=== PATIENT | female | born 1975 | race Caucasian/White ===

== ENCOUNTER 2018-05-31 05:40 | Day surgery (SDC) | payer BC ==
[~2018-05-31] VITALS: Ht 177.8 cm; Wt 64.5 kg
[~2018-05-31 05:40] MED LIST: SERT50TA PO
[2018-05-31] MEDS ORDERED: LACTATED RINGER'S 1000ML 1,000 ML IV SCH ×2 (06:00)
[2018-05-31 06:14] VITALS: BP 107/75; PULSE 9; TEMP 36; O2SAT 98; Ht 177.8 cm; Wt 64.5 kg
[2018-05-31] MEDS ORDERED: FENTANYL CITRATE INJ 50 MCG/1 ML 2 ML VIAL ONE (06:34)
[2018-05-31] MEDS ORDERED: MIDAZOLAM HCL 1 MG/ML 2ML VIAL ONE (06:34)
[2018-05-31] MEDS ORDERED: SILVER NITR/POTASSIUM NITRATE APPLICATOR ONE (06:57)
--- NOTE | 2018-05-31 07:03 | History & Physical Bridge Note ---
H&P Re-Evaluation Bridge Note: I have examined the patient, reviewed the History & Physical and in the interval since the performance of the History & Physical I have noted the following changes of clinical significance: No changes noted
[2018-05-31] MEDS ORDERED: SODIUM CHLORIDE 0.9% 1000ML 1,000 ML IV SCH (07:17)
--- NOTE | 2018-05-31 07:20 | Discharge Instructions ---
Discharge Instructions Date of Service May 31, 2018. Admission Reason for Admission: Missed Discharge Discharge Diagnosis / Problem: missed Discharge Goals Goal(s): Routine recovery after surgery, Continuing MANAGER ETL care Activity Recommendations Activity Limitations: as noted below Lifting Limitations: none, no more than 10 pounds Exercise/Sports Limitations: gradually increase as tolerated May Resume Sexual Activity: after follow-up appointment Shower/Bathe: no limitations Driving or Machine Use: resume 1 day after discharge . Instructions / Follow-Up Instructions / Follow-Up ACTIVITY RECOMMENDATIONS: * Avoid tampons, douching, hot tubs, pools, and intercourse until bleeding has stopped. * May shower as usual. * No strenuous activity for 24-48 hours. After 24-48 hours, you may do anything you feel like doing (driving and sports are okay). SPECIAL CARE INSTRUCTIONS: Special Diet: * Mild nausea may occur in the immediate post-operative period. * Take clear liquids such as tea, cola or bouillon until all nausea has subsided; you may then resume your normal diet. Special Care: * Light bleeding and vaginal spotting can last from a few days to 3-4 weeks. Call your doctor if bleeding becomes heavier than the heaviest part of your period. * Check your temperature twice a day for one week. If it goes above 100.4 degrees Fahrenheit (38.0 Celsius), notify your doctor. * Call your doctor's office for an appointment for 6 weeks after your surgery. FOLLOW-UP VISIT: Call your doctor's office for an appointment for 6 weeks after your surgery. Current Hospital Diet Patient's current hospital diet: Discharge Diet Recommended Diet: Regular Diet Fluid Restriction: None Pending Studies Studies pending at discharge: no Medical Emergencies . Who to Call and When: Medical Emergencies: If at any time you feel your situation is an emergency, please call 911 immediately. . Non-Emergent Contact Non-Emergency issues call your: Primary Care Provider . . "Provider Documentation" section prepared by Shalom Aguiar. .
[2018-05-31] MEDS ORDERED: MTR600X PO (07:29)
[2018-05-31] MEDS ORDERED: MoRPHine SULFATE 2 MG/ML CARP IV PRN (07:30)
[2018-05-31] MEDS ORDERED: ONDANSETRON INJ 2 MG/ML 2 ML VIAL IV PRN (07:30)
[2018-05-31] MEDS ORDERED: KETOROLAC TROMETHAMINE 30 MG/ML VIAL IV. PRN (07:30)
[2018-05-31] MEDS ORDERED: IBUPROFEN 600 MG TAB PO PRN (07:30)
--- NOTE | 2018-05-31 07:30 | [facility] Post Operative Brief Note ---
Immediate Operative Summary Operative Date May 31, 2018. Pre-Operative Diagnosis Missed Post-Operative Diagnosis Missed Procedure(s) Performed Dilation and Evacuation Surgeon Dr Aguiar Mold Worker Surgeon(s) None Estimated Blood Loss 5cc Findings Consistent with Post-Op Diagnosis Specimens A: Products of Conception Drains None Anesthesia Type General Disposition Accompanied Pt To Recover: yes Disposition: Recovery Room / PACU Overlapping Procedure I was present for: the critical portions of procedure. I was immediately available: during the entire case
[2018-05-31] MEDS ORDERED: ACETAMINOPHEN 1000 MG/100 ML IV IV ONE (07:43)
[2018-05-31] MEDS ORDERED: GLYCOPYRROLATE INJ 0.2 MG/ML VIAL ONE (07:50)
[2018-05-31] MEDS ORDERED: DEXAMETHASONE SOD INJ 4 MG/ML VIAL ONE (07:50)
[2018-05-31] MEDS ORDERED: KETOROLAC TROMETHAMINE 30 MG/ML VIAL ONE (07:50)
[2018-05-31] MEDS ORDERED: LIDOCAINE HCL 2% 2 ML VIAL (20MG/ML) ONE (07:50)
[2018-05-31] MEDS ORDERED: ONDANSETRON INJ 2 MG/ML 2 ML VIAL ONE (07:50)
[2018-05-31] MEDS ORDERED: OXYTOCIN INJ 10 UNITS/ML VIAL ONE (07:50)
[2018-05-31] MEDS ORDERED: PROPOFOL IV EMULSION 10 MG/ML 20 ML VIAL ONE (07:50)
[2018-05-31] MEDS ORDERED: EpHEDrine SULFATE INJ 50 MG/ML AMP IV PRN (08:15)
[2018-05-31] MEDS ORDERED: ATROPINE SULFATE 0.1 MG/ML 5ML SYR IV PRN (08:15)
--- NOTE | 2018-05-31 08:20 | Anesthesiology Progress Note ---
Anesthesia Post Op Note Date & Time May 31, 2018 at 08:20 Vital Signs Pain Intensity: 2 Vital Signs Past 12 Hours Date Time Temp Pulse Resp B/P (MAP) Pulse Ox O2 Delivery O2 Flow Rate FiO2 05/31/18 08:15 37.1 62 18 100/58 98 Room Air 05/31/18 08:05 60 18 95/57 95 Room Air 05/31/18 07:55 73 18 101/56 95 Oxymask 8 05/31/18 07:45 70 18 99/62 96 Oxymask 8 05/31/18 07:39 36.7 78 18 109/67 99 Oxymask 8 05/31/18 06:14 36 9 16 107/75 (86) 98 Room Air Notes Mental Status: alert / awake / arousable, participated in evaluation Pt Amnestic to Procedure: Yes Nausea / Vomiting: adequately controlled Pain: adequately controlled Airway Patency, RR, SpO2: stable & adequate BP & HR: stable & adequate Hydration State: stable & adequate Anesthetic Complications: no major complications apparent
[2018-05-31 08:25] VITALS: BP 99/58; PULSE 78; TEMP 37; O2SAT 99
[2018-05-31 08:55] VITALS: BP 97/61; PULSE 77; TEMP 37.1; O2SAT 97
[2018-05-31 09:25] VITALS: BP 97/61; PULSE 77; TEMP 37; O2SAT 98
--- NOTE | 2018-05-31 22:51 | OPERATIVE REPORT ---
DATE OF ADMISSION: 05/31/2018 PREOPERATIVE DIAGNOSIS: Missed . POSTOPERATIVE DIAGNOSIS: Missed . PROCEDURE: D and E. SURGEON: Shalom Aguiar MD ANESTHESIA: General LMA. CLINICAL FINDINGS: Products of conception found at surgery. CLINICAL HISTORY: The patient is a 43-year-old female para 3-0-2-3, admitted for D and E for missed AB. The patient is O-positive. Did not receive RhoGAM and did not receive antibiotics preop. A timeout was called prior to the start of procedure. DESCRIPTION OF PROCEDURE: After satisfactory general LMA anesthesia, the patient was prepped and draped in usual sterile fashion. Catheter was used to empty the bladder of approximately 100 mL of clear urine. Exam under anesthesia revealed the uterus to be anteverted and approximately 8-week size. A weighted speculum placed in the posterior vault of the vagina. An Allis clamp was used to grasp the anterior lip of the cervix. Cervix sounded to approximately 8 cm and then dilated progressively with Hegar dilators. A #8 curved curette was then introduced suctioning and curetting out products of conception. A sharp endometrial curette was then introduced curetting out minimal amounts of tissue. Pitocin was started in the IV. No active bleeding was noted at the end of the procedure. All remaining instruments were then removed. The final sponge, needle and instrument count were found to be correct. The patient was placed supine on a stretcher, taken to recovery room in stable condition, and discharged as an outpatient later in the day.
== END 2018-05-31 09:20 | disposition home or self-care (01) ==
LOC: C.ACU 05:40
PROVIDERS: ATTEND Obstetrics & Gynecology
DX: O02.1 Missed abortion (principal); Z88.5 Allergy status to narcotic agent; Z87.891 Personal history of nicotine dependence